=== PATIENT | female | born 1945 | race Hispanic/Latino ===

== ENCOUNTER 2017-12-13 21:21 | Emergency (ER) | payer MEDICARE ==
[~2017-12-13] VITALS: Ht 157.5 cm; Wt 78.1 kg
[2017-12-13] MEDS ORDERED: MORPHINE SULFATE 4 MG/ML SYR IV ONE (21:45)
[2017-12-13] MEDS ORDERED: PROMETHAZINE HCL (IM) 25 MG/ML VIAL IM ONE (21:45)
[2017-12-13] MEDS ORDERED: SODIUM CHLORIDE 0.9% 1000ML 1,000 ML ONE (21:45)
[2017-12-13] MEDS ORDERED: HYDRALAZINE HCL 20 MG/ML VIAL IV ONE (22:30)
[2017-12-13] MEDS ORDERED: METOPROLOL TARTRATE INJ 1 MG/ML VIAL IV ONE (23:00)
[2017-12-14] MEDS ORDERED: ACETAMINOPHEN 325 MG TAB PO ONE (00:30)
[2017-12-14] MEDS ORDERED: ZOFRAN ODT4 MG SL (01:18)
[2017-12-14 02:17] VITALS: BP 111/94
== END 2017-12-14 01:30 | disposition home or self-care (01) ==
LOC: FSED 21:21
DX: R51 Headache (principal); R11.2 Nausea with vomiting, unspecified; R10.13 Epigastric pain; T88.7XXA Unspecified adverse effect of drug or medicament, initial encounter; I10 Essential (primary) hypertension
CPT/HCPCS: 70450; 71020; 74177; 80048; 82553; 84484; 85025; 93005; 96360; 96374; 96375; 99284; J0360; J2270; J2550; J7030; 71046

== ENCOUNTER 2019-01-11 17:34 | Emergency (ER) | payer MEDICARE ==
[~2019-01-11] VITALS: Ht 162.6 cm; Wt 74.4 kg
[~2019-01-11 17:34] MED LIST: ZOFRAN ODT4 MG SL
--- NOTE | 2019-01-11 19:41 | NUR ---
REPORT TO RYAN BERMAN
== END 2019-01-11 21:50 | disposition home or self-care (01) ==
LOC: FSED 17:34
DX: R42 Dizziness and giddiness (principal)
CPT/HCPCS: 93005; 99283

== ENCOUNTER 2020-06-15 14:43 | Emergency (ER) | payer MEDICARE ==
[~2020-06-15] VITALS: Ht 157.5 cm; Wt 74.1 kg
--- OUTSIDE RECORDS SUMMARY | 2020-06-15 15:26 | XMS REPORT | Continuity of Care Document ---
Author Author [facility] t Organization [facility] Address [address] [place] [address] Phone Unavailable Care Team Providers Care Co Op Name Role Phone LEANDRO DURAN, Tamiko CASTILLO PCP Roberto MANUEL Unavailable Payers Payer Name Policy Type Policy Number Effective Date Expiration Date Maricarmen lennon [facility] [id number] 2018 00:00:00 [facility] Medicare A & B [id number] [facility] Medicare Advantage [id number] [facility] Problems This patient has no known problems. Allergies, Adverse Reactions, Alerts This patient has no known allergies or adverse reactions. Medications Ordered Medication Name Filled Medication Name Start Date Stop Da te Current Medication? Ordering Clinician Indication Dosage Frequency Signature (SIG) Comments Components Source Ondansetron (Zofran Odt) 4 Mg Tab.rapdis Ondansetron ( Zofran Odt) 4 Mg Tab.rapdis 2017-12-14 00:00:00 Yes Scooby Coburn Md 4 Every 6 Hours as needed for Nausea [facility] Procedures This patient has no known procedures. Encounters Start Date/Time End Date/Time [facility] ID Source 2019-11-25 22:14:00 2019-11-25 23:25:00 Departed Emergency Room 1 AZALEA MANUEL [facility] [id number] [facility] 2019-01-11 17:34:00 2019-01-11 21:50:00 Departed Emergency Room [facility] [id number] [facility] 2017-12-13 21:21:00 2017-12-14 01:30:00 Departed Emergency Room [facility] [id number] [facility] Results Test Description Test Time Test Comments Results Result Comments Source CT BRAIN WO-HOPD 2019-11-25 22:58:00 [facility] [address] [address] Patient Name: REESE ESCOBEDO MR #: [id number] : 1945 Age/Sex: 74/F Req #: [id number] Adm Physician: Ordered by: AZALEA MANUEL MD Report #: [id number] Location: [facility] Room/Bed: Procedure: [id number] HOPD/CT BRAIN WO-HOPD Exam Date: 11/25/19 Exam Time: 2250 REPORT STATUS: Signed Examination: CT head without contrast Clinical Indication: Headaches; high blood pressure. Technique: Transaxial noncontrast images from the skull base through the vertex were obtained. Sagittal and coronal reformatted images were done. Dose modulation, iterative reconstruction, and/or weight based adjustment of the mA/kV was utilized to reduce the radiation dose to as low as reasonably achievable. Comparison: None. Findings: Scalp: No abnormalities. Bones: Intact. No fractures. No blastic or lytic lesions. Brain sulci: Appropriate for patient's age. Ventricles: Normal in size and configuration. No hydrocephalus. . Extra-axial space: No abnormalities. Parenchyma: There are patchy areas of low-attenuation within subcortical and periventricular white matter, nonspecific, but could represent microvascular ischemic disease. No masses, hemorrhage, or acute or chronic cortical based vascular insults. Suprasellar region: No abnormalities. Craniocervical junction: The foramen magnum is patent. No Chiari one malformation. Impression: 1. No acute intracranial finding. 2. Mild chronic microvascular ischemic change. Signed by: Dr. Geraldine Gregory M.D. on 11/25/2019 11:00 PM Dictated By: GERALDINE ROTHMAN MD 99 Transcribed By: LUZ MARIA on 11/25/192299 COPY TO: AZALEA MANUEL MD
[2020-06-15] MEDS ORDERED: LOSARTAN POTAS100 MG PO (15:29)
[2020-06-15] MEDS ORDERED: AMLODIPINE BESYL5 MG PO (15:29)
[2020-06-15] MEDS ORDERED: ATORVASTATIN CA20 MG PO (15:29)
--- NOTE | 2020-06-15 15:55 | Diagnostic Imaging Report ---
EXAMINATION: CXR 1 [facility] INDICATION: Palpitations, hypertension COMPARISON: None FINDINGS: LINES/TUBES:EKG leads overlie the chest. LUNGS:The lungs are well-inflated. No focal consolidation or pulmonary edema. PLEURA:No pleural effusion or pneumothorax. MEDIASTINUM:The cardiomediastinal silhouette appears normal in size and shape. Atherosclerotic calcifications of the thoracic aorta. BONES/SOFT TISSUES:No acute osseous injury. ABDOMEN:No free air under the diaphragm. IMPRESSION: No focal pneumonia or pulmonary edema. Signed by: Santa Parson MD on 06/15/2020 3:52 PM
[2020-06-15 16:15] VITALS: BP 152/72
--- NOTE | 2020-06-15 16:25 | Emergency Department Note ---
History of Present Illnes History of Present Illness Chief Complaint: Chest Pain History of Present Illness This is a 74 year old female Chief Complaint Comment Reports that for over 3 weeks when she is walking around she has a rapid heart rate and palpitations but when she stands still her heart rate goes down and the palpitations stop. She seen her iron caster 3 weeks ago and he diagnosed her with a heart murmur and told her it was nothing to worry about. Pt seen her PCP yesterday and she took her off a medication that she was taking for her headaches. . Historian: Patient Arrival Mode: Car Onset (how long ago): day(s) (1) Location: palpitation Quality: no pain Radiation: Denies non-radiation, Denies back, Denies neck, Denies extremity, Denies abdomen, Denies periumbilical, Denies flank, Denies proximal, Denies distal, Denies other Severity: mild Onset quality: gradual Duration (how long): day(s) (1) Timing of current episode: intermittent Progression: improving Chronicity: recurrent Context: Denies recent illness, Denies recent surgery, Denies recent immobilization, Denies recent travel, Denies trauma/injury, Denies new medications, Denies hx of DVT/PE, Denies non-compliance w/ medications, Denies other Relieving factors: none Exacerbating factors: none Associated symptoms: Reports denies other symptoms Treatments prior to arrival: none Past Medical/Family History Physician Review I have reviewed the patient's past medical and family history. Any updates have been documented here. Past Medical History Recent Fever: No Clinical Suspicion of Infectio: No New/Unexplained Change in Ment: No Past Medical History: Hypertension, Hyperlipedemia Other Medical History: gout MIGRAINES Past Surgical History: Cholecysctectomy, Hysterectomy Social History Smoking Cessation: Never Smoker Counseling Performed: No Alcohol Use: None Any Illegal Drug Use: No Other Last Tetanus: UNKNOWN Any Pre-Existing Lines (PICC,: No Review of Systems Review of Systems Constitutional: Reports no symptoms EENTM: Reports no symptoms Cardiovascular: Reports as per HPI Respiratory: Reports no symptoms Gastrointestinal: Reports no symptoms Genitourinary: Reports no symptoms Musculoskeletal: Reports no symptoms Integumentary: Reports no symptoms Neurological: Reports no symptoms Psychological: Reports no symptoms Endocrine: Reports no symptoms Hematological/Lymphatic: Reports no symptoms Physical Exam Related Data Allergies: Coded Allergies: No Known Allergies (Unverified , 12/13/17) Triage Vital Signs Vital Signs Date Time Temp Pulse Resp B/P (MAP) Pulse Ox O2 Delivery O2 Flow Rate FiO2 06/15/20 14:47 98.6 73 20 171/82 99 Room Air Vital signs reviewed: Yes Physical Exam CONSTITUTIONAL Constitutional: Present well-developed, Present well-nourished HENT HENT: Present normocephalic, Present atraumatic, Present oropharynx clear/moist, Present nose normal HENT L/R: Present left ext ear normal, Present right ext ear normal EYES Eyes: Reports PERRL, Reports conjunctivae normal NECK Neck: Present ROM normal PULMONARY Pulmonary: Present effort normal, Present breath sounds normal CARDIOVASCULAR Cardiovascular: Present regular rhythm, Present heart sounds normal, Present capillary refill normal, Present normal rate GASTROINTESTINAL Abdominal: Present soft, Present nontender, Present bowel sounds normal GENITOURINARY Genitourinary: Present exam deferred SKIN Skin: Present warm, Present dry MUSCULOSKELETAL Musculoskeletal: Present ROM normal NEUROLOGICAL Neurological: Present alert, Present oriented x 3, Present no gross motor or sensory deficits PSYCHOLOGICAL Psychological: Present mood/affect normal, Present judgement normal Results Laboratory Lab results reviewed: Yes Imaging Imaging results reviewed: Yes Procedures 12 Lead ECG Interpretation ECG Interpretation : ECG: ECG 1 Respiratory Care Technician: Interpreted by ED physician Date: Jun 15, 2020 Time: 14:51 Rhythm: sinus rhythm Rate: normal BPM: 77 Conduction: complete RBBB ST segments normal: Yes T waves normal: Yes Clinical Impression: abnormal ECG Assessment & Plan Medical Decision Making MDM tachycardia anxiety Reassessment Reassessment time: 16:24 Reassessment resolved Assessment & Plan Final Impression: (1) Uncontrolled hypertension (2) Palpitation Depart Disposition: HOME, SELF-CARE Last Vital Signs Date Time Temp Pulse Resp B/P (MAP) Pulse Ox O2 Delivery O2 Flow Rate FiO2 06/15/20 16:15 66 18 100 06/15/20 15:39 181/77 Room Air 06/15/20 14:47 98.6 Home Meds Reported Medications Amlodipine Besylate (AMLODIPINE BESYLATE) 5 Mg Tablet, 5 MG PO DAILY, #30 TAB 06/15/20 Atorvastatin Calcium (ATORVASTATIN CALCIUM) 20 Mg Tablet, 20 MG PO HS, #30 TAB 06/15/20 Losartan Potassium (LOSARTAN POTASSIUM) 100 Mg Tablet, 100 MG PO DAILY, TAB 06/15/20 Discontinued Scripts Ondansetron (ZOFRAN ODT) 4 Mg Tab.rapdis, 4 MG SL Q6H PRN for Nausea, #5 0 Refills Prov:ALEA RENNER MD 12/14/17 JUJU LAL MD Jun 15, 2020 16:25
== END 2020-06-15 16:41 | disposition home or self-care (01) ==
LOC: FSED 14:43
DX: R00.2 Palpitations (principal); I10 Essential (primary) hypertension; R94.31 Abnormal electrocardiogram [ECG] [EKG]; E78.5 Hyperlipidemia, unspecified; M10.9 Gout, unspecified
CPT/HCPCS: 71045; 80053; 84484; 85025; 93005; 99284

== ENCOUNTER 2020-06-21 04:20 | Observation (INO) | payer MEDICARE ==
[2020-06-21] VITALS (7 sets, daily range): BP systolic 125–156; BP diastolic 65–82
[~2020-06-21] VITALS: Ht 162.6 cm; Wt 73.1 kg
[~2020-06-21 04:20] MED LIST changes: +AMLODIPINE BESYL5 MG PO; +ATORVASTATIN CA20 MG PO; +LOSARTAN POTAS100 MG PO
--- NOTE | 2020-06-21 06:12 | NUR ---
PER MD-HOLD ASA UNTIL RESULTS FROM CT ARE BACK
[2020-06-21] MEDS ORDERED: ASPIRIN 325 MG TAB PO ONE (06:15)
--- NOTE | 2020-06-21 06:17 | Diagnostic Imaging Report ---
Exam: Head CT without contrast History: Facial numbness Comparison studies: Head CT 11/25/2019 Technique: Axial images were obtained from the skull base to the vertex. Coronal and sagittal images reconstructed from the axial data. Dose modulation, iterative reconstruction, and/or weight based adjustment of the mA/kV was utilized to reduce the radiation dose to as low as reasonably achievable. Radiation dose: Total DLP: 969.14 mGy*cm. Estimated effective dose: DLP x 0.015 Intravenous contrast: None Findings: Scalp: No abnormalities. Bones: No fractures, blastic or lytic lesions. Ventricles: Normal in size and configuration. No hydrocephalus. Extra-axial spaces: No masses, no fluid collection. Parenchyma: No abnormal densities. No mass, acute hemorrhage or acute or chronic cortical insults. Unchanged mild nonspecific cerebellar volume loss, most pronounced within the superior cerebellar vermis. Similar findings can be seen in patients with chronic EtOH use in the appropriate clinical setting. Cerebral brain volume is appropriate for patient's age. Sellar/suprasellar region. Unchanged partially CSF filled sella. Craniocervical junction: Patent foramen magnum. No Chiari one malformation. 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 IMPRESSION: 1. No acute intracranial abnormalities. 2. Nonspecific mild cerebellar volume loss. 3. No changes from the prior head CT of 11/25/2019. Signed by: Dr. Garry Madrid M.D. on 06/21/2020 6:14 AM
[2020-06-21] MEDS ORDERED: SODIUM CHLORIDE FLUSH 10 ML SYR INJ PRN (06:45)
[2020-06-21] MEDS ORDERED: ONDANSETRON HCL INJ 2MG/ML 2ML 2 MG/ML VIAL IV PRN (06:45)
--- NOTE | 2020-06-21 06:46 | Emergency Department Note ---
History of Present Illnes History of Present Illness Chief Complaint: General Medicine Complaints History of Present Illness This is a 74 year old female presents with left-sided facial numbness with onset approximately 1 hour prior to arrival and resolved at arrival. The patient is in the process of being worked up for intermittent palpitations since January. She was seen here on June 15 for a chief complaint of palpitations and had an EKG that showed normal sinus rhythm, a negative troponin, and a negative x-ray. She followed up with a baseboard heating installer on June 17 who started her on Metroprolol and has scheduled her for an echo and a stress test. She states that the metoprolol has been helping her symptoms. She had a episode of palpitations about an hour prior to arrival while returning to her bedroom from the bathroom, shortly after that she felt shaky and had left facial weakness and numbness. She describes an inability to move her tongue, and states when she pinched her lip on the left side she could not feel it. Her facial symptoms were only on the left side. She denies any extremity numbness, weakness, or tingling. No blurry vision, or black spots. No hearing problems. She called her daughter during this episode. Her daughter said that the patient was tearful, however had no slurred speech. Both the patient and the daughter states that she had no difficulty finding her words. She denies any trauma. Denies any chest pain. She denies any shortness of breath, however states that she has problems "getting enough air". No N/V or diaphoresis. Historian: Patient, Family Member Arrival Mode: Car History limited by: language barrier Strategic Marketing Associate Required: Yes Onset (how long ago): hour(s) (1) Location: left face Quality: numbness, weakness Onset quality: sudden Duration (how long): hour(s) (1) Progression: resolved Chronicity: new Context: Reports recent illness (COVID in February, being worked up for palpatations); Denies trauma/injury Relieving factors: none Exacerbating factors: none Associated symptoms: Denies confusion, Denies chest pain, Denies cough, Denies diaphoresis, Denies fever/chills, Denies headaches, Denies loss of appetite, Denies malaise, Denies nausea/vomiting, Denies rash Treatments prior to arrival: none Past Medical/Family History Physician Review I have reviewed the patient's past medical and family history. Any updates have been documented here. Past Medical History Recent Fever: No Clinical Suspicion of Infectio: No New/Unexplained Change in Ment: No Past Medical History: Hypertension, Hyperlipedemia Other Medical History: gout MIGRAINES PALPATATIONS Past Surgical History: Cholecysctectomy, Hysterectomy Social History Smoking Cessation: Never Smoker Alcohol Use: None Any Illegal Drug Use: No Physically hurt or threatened: No Other Last Tetanus: UNKNOWN Any Pre-Existing Lines (PICC,: No Review of Systems Review of Systems Constitutional: Reports no symptoms; Denies chills, Denies fever, Denies malaise EENTM: Reports other (throat itching); Denies eye pain, Denies blurred vision, Denies double vision Cardiovascular: Reports as per HPI, Reports palpitations; Denies chest pain, Denies edema, Denies syncope Respiratory: Reports no symptoms; Denies chest congestion, Denies cough, Denies dyspnea Gastrointestinal: Reports no symptoms Genitourinary: Reports no symptoms Musculoskeletal: Denies back pain, Denies muscle pain Integumentary: Denies rash Neurological: Reports as per HPI Psychological: Reports anxiety Endocrine: Denies increased thirst, Denies increased urination Hematological/Lymphatic: Denies anemia, Denies blood clots, Denies easy bleeding, Denies easy bruising Physical Exam Related Data Allergies: Coded Allergies: No Known Allergies (Unverified , 12/13/17) Triage Vital Signs Vital Signs Date Time Temp Pulse Resp B/P (MAP) Pulse Ox O2 Delivery O2 Flow Rate FiO2 06/21/20 04:29 98.4 70 18 159/77 99 Room Air Physical Exam CONSTITUTIONAL Constitutional: Present well-developed, Present well-nourished HENT HENT: Present normocephalic, Present atraumatic, Present mucosae dry, Present pharynx abnormal EYES NECK Neck: Present ROM normal PULMONARY Pulmonary: Present effort normal, Present breath sounds normal; Absent respiratory distress, Absent rales, Absent rhonchi CARDIOVASCULAR Cardiovascular: Present regular rhythm, Present heart sounds normal; Absent weak pulses GASTROINTESTINAL Abdominal: Present soft, Present nontender GENITOURINARY SKIN Skin: Present warm, Present dry MUSCULOSKELETAL NEUROLOGICAL Neurological: Present alert, Present oriented x 3 PSYCHOLOGICAL Psychological: Present mood/affect normal Results Laboratory Laboratory comments WBC 5.0, HGB 13.9, HCT 41.4, PLT 170, CMP WNL, Troponin negative Imaging Imaging Comments Exam: Head CT without contrast History: Facial numbness Comparison studies: Head CT 11/25/2019 Technique: Axial images were obtained from the skull base to the vertex. Coronal and sagittal images reconstructed from the axial data. Dose modulation, iterative reconstruction, and/or weight based adjustment of the mA/kV was utilized to reduce the radiation dose to as low as reasonably achievable. Radiation dose: Total DLP: 969.14 mGy*cm. Estimated effective dose: DLP x 0.015 Intravenous contrast: None Findings: Scalp: No abnormalities. Bones: No fractures, blastic or lytic lesions. Ventricles: Normal in size and configuration. No hydrocephalus. Extra-axial spaces: No masses, no fluid collection. Parenchyma: No abnormal densities. No mass, acute hemorrhage or acute or chronic cortical insults. Unchanged mild nonspecific cerebellar volume loss, most pronounced within the superior cerebellar vermis. Similar findings can be seen in patients with chronic EtOH use in the appropriate clinical setting. Cerebral brain volume is appropriate for patient's age. Sellar/suprasellar region. Unchanged partially CSF filled sella. Craniocervical junction: Patent foramen magnum. No Chiari one malformation. 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 IMPRESSION: 1. No acute intracranial abnormalities. 2. Nonspecific mild cerebellar volume loss. 3. No changes from the prior head CT of 11/25/2019. Signed by: Dr. Garry Madrid M.D. on 06/21/2020 6:14 AM Procedures 12 Lead ECG Interpretation ECG Interpretation : ECG: ECG 1 Strategic Marketing Associate: Interpreted by ED physician Date: Jun 21, 2020 Time: 04:29 Prior ECG tracings: reviewed Rhythm: sinus rhythm Rate: normal BPM: 69 QRS axis: normal Conduction: incomplete RBBB Clinical Impression: abnormal ECG Assessment & Plan Medical Decision Making [facility] Reviewed Chart from 06/15/2020. WBC 6.3, CMP WNL, neg troponin, EKG NSR with 77bmp and rt bundle branch block. Facial symptom onset after palpations: differential includes, but not limited to hyperventilation syndrome and TIA. Concern for TIA due to the fact that symptoms were only on one side and appear to include weakness. Also concern for fact palpitations proceeded facial numbness/weakness as possible episode of afib as cause of TIA. Spoke with Montrell: admit to Dr. Luciano. Reassessment Reassessment time: 06:44 Reassessment asymptomatic Assessment & Plan Final Impression: (1) TIA (transient ischemic attack) (2) Heart palpitations Depart Disposition: DIS/[facility] Last Vital Signs Date Time Temp Pulse Resp B/P (MAP) Pulse Ox O2 Delivery O2 Flow Rate FiO2 06/21/20 04:29 98.4 70 18 159/77 99 Room Air Home Meds Reported Medications Amlodipine Besylate (AMLODIPINE BESYLATE) 5 Mg Tablet, 5 MG PO DAILY, #30 TAB 06/15/20 Atorvastatin Calcium (ATORVASTATIN CALCIUM) 20 Mg Tablet, 20 MG PO HS, #30 TAB 06/15/20 Losartan Potassium (LOSARTAN POTASSIUM) 100 Mg Tablet, 100 MG PO DAILY, TAB 06/15/20 Discontinued Scripts Ondansetron (ZOFRAN ODT) 4 Mg Tab.rapdis, 4 MG SL Q6H PRN for Nausea, #5 0 Refills Prov:ALEA RENNER MD 12/14/17 MOR PHAM MD Jun 21, 2020 05:39
--- OUTSIDE RECORDS SUMMARY | 2020-06-21 07:04 | XMS REPORT | Continuity of Care Document ---
Author Author [facility] t Organization [facility] Address [address] [place] [address] Phone Unavailable Care Team Providers Care Manager Long Term Care Name Role Phone LEANDRO DURAN, MD Tamiko CASTILLO PCP Serenity PHAM Attphycliff Unavailable JUJU LAL Attphycliff Unavailable Roberto MANUEL Unavailable Payers Payer Name Policy Type Policy Number Effective Date Expiration Date Cliff lennon [employer] [id number] 2020 00:00:00 [facility] [id number] 2018 00:00:00 [facility] Medicare A & B [id number] [facility] Medicare Advantage [id number] [facility] Problems Condition Name Condition Details Condition Category Status Onset Date Resolution Date Last Treatment Date Treating Clinician Comments Source Palpitations Problem Active [facility] Uncontrolled hypertension Problem Active [facility] Allergies, Adverse Reactions, Alerts This patient has no known allergies or adverse reactions. Social History Social Habit Start Date Stop Date Quantity Comments Source Sex Assigned At 1945 00:00:00 1945 00:[birth year]:00 Female [facility] Medications Ordered Medication Name Filled Medication Name Start Date Stop Da te Current Medication? Ordering Clinician Indication Dosage Frequency Signature (SIG) Comments Components Source Ondansetron (Zofran Odt) 4 Mg TAB.RAPDIS Ondansetron ( Zofran Odt) 4 Mg TAB.RAPDIS 2017-12-14 00:18:00 2020-06-15 00:00:00 No 4 Every 6 Hours as needed for Nausea [facility] Amlodipine Besylate Amlodipine Besylate Yes 5 Daily [facility] Atorvastatin Calcium Atorvastatin Calcium Yes 20 Bedtime [facility] Losartan Potassium Losartan Potassium Yes 100 Da avery [facility] Vital Signs Vital Name Observation Time Observation Value Comments Source Weight 2020-06-15 14:47:00 163.31 [lb_av] [facility] BMI (Body Mass Index) 2020-06-15 14:47:00 29.9 kg/m2 [facility] Procedures Procedure Date / Time Performed Performing Clinician Sour e EMERGENCY DEPT VISIT 2019-11-25 00:00:00 [facility] Plan of Care Planned Activity Planned Date Details Comments Source Instructions Heart Palpitations [facility] Encounters Start Date/Time End Date/Time [facility] ID Source 2020-06-15 14:43:00 2020-06-15 16:41:00 Departed Emergency Room 1 JUJU LAL [facility] [id number] [facility] 2019-11-25 21:14:00 2019-11-25 22:25:00 Departed Emergency Room 1 AZALEA MANUEL [facility] [id number] [facility] 2019-01-11 17:34:00 2019-01-11 21:50:00 Departed Emergency Room [facility] [id number] [facility] 2017-12-13 21:21:00 2017-12-14 01:30:00 Departed Emergency Room [facility] [id number] [facility] Results Test Description Test Time Test Comments Results Result Comments Source CT BRAIN WO-HOPD 2020-06-21 06:06:00 [facility] [address] [address] Patient Name: REESE ESCOBEDO MR #: [id number] : 1945 Age/Sex: 74/F Re #: [id number] [facility] Physician: Ordered by: MOR PHAM MD Report #: [id number] Location: [facility] Room/Bed: Procedure: [id number] HOPD/CT BRAIN WO-HOPD Exam Date: 06/21/20 Exam Time: 0545 REPORT STATUS: Signed Exam: Head CT without contrast History: Facial numbness Comparison studies: Head CT 11/25/2019 Technique: Axial images were obtained from the skull base to the vertex. Coronal and sagittal images reconstructed from the axial data. Dose modulation, iterative reconstruction, and/or weight based adjustment of the mA/kV was utilized to reduce the radiation dose to as low as reasonably achievable. Radiation dose: Total DLP: 969.14 mGy*cm. Estimated effective dose: DLP x 0.015 Intravenous contrast: None Findings: Scalp: No abnormalities. Bones: No fractures, blastic or lytic lesions. Ventricles: Normal in size and configuration. No hydrocephalus. Extra-axial spaces: No masses, no fluid collection. Parenchyma: No abnormal densities. No mass, acute hemorrhage or acute or chronic cortical insults. Unchanged mild nonspecific cerebellar volume loss, most pronounced within the superior cerebellar vermis. Similar findings can be seen in patients with chronic EtOH use in the appropriate clinical setting. Cerebral brain volume is appropriate for patient's age. Sellar/suprasellar region. Unchanged partially CSF filled sella. Craniocervical junction: Patent foramen magnum. No Chiari one malformation. 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 IMPRESSION: 1. No acute intracranial abnormalities. 2. Nonspecific mild cerebellar volume loss. 3. No changes from the prior head CT of 11/25/2019. Signed by: Dr. Go Madrid M.D. on 06/21/2020 6:14 AM Dictated By: GO MADRID MD 3 Transcribed By: LUZ MARIA on 06/21/20613 COPY TO: MOR PHAM MD CXR 1 [facility] 2020-06-15 15:51:[address] [address] Patient Name: REESE ESCOBEDO MR #: [id number] : 1945 Age/Sex: 74/F Req #: [id number] Adm Physician: Ordered by: JUJU LAL MD Report #: [id number] Location: [facility] Room/Bed: Procedure: [id number] HOPD/CXR 1 [facility] Exam Date: 06/15/20 Exam Time: 1523 REPORT STATUS: Signed EXAMINATION: CXR 1 [facility] INDICATION: Palpitations, hypertension COMPARISON: None FINDINGS: LINES/TUBES:EKG leads overlie the chest. LUNGS:The lungs are well-inflated. No focal consolidation or pulmonary edema. PLEURA:No p leural effusion or pneumothorax. MEDIASTINUM:The cardiomediastinal silhouette appears normal in size and shape. Atherosclerotic calcifications of the thoracic aorta. BONES/SOFT TISSUES:No acute osseous injury. ABDOMEN:No free air under the diaphragm. IMPRESSION: No focal pneumonia or pulmonary edema. Signed by: Sabina Cueva MD on 06/15/2020 3:52 PM Dictated By: SABINA CUEVA MD 51 Transcribed By: LUZ MARIA on 06/15/201551 COPY TO: JUJU LAL MD CT BRAIN -[facility] 2019-11-25 22:58:00 [address] [address] [address] [address] Patient Name: REESE ESCOBEDO MR #: [id number] : 1945 Age/Sex: 74/F Req #: [id number] Adm Physician: Ordered by: AZALEA MANUEL MD Report #: [id number] Location: [facility] Room/Bed: Procedure: [id number] HOPD/CT BRAIN WO-HOPD Exam Date: 11/25/19 Exam [...] chronic microvascular ischemic change. Signed by: Dr. Zaida Gregory M.D. on 11/25/2019 11:00 PM Dictated By: ZAIDA ROTHMAN MD 99 Transcribed By: LUZ MARIA on 11/25/192299 COPY TO: AZALEA MANUEL MD
--- OUTSIDE RECORDS SUMMARY | 2020-06-21 07:11 | XMS REPORT | Continuity of Care Document ---
Author Author [facility] t Organization [facility] Address [address] [place] [address] Phone Unavailable Care Team Providers Care Edger Machine Operator Name Role Phone LEANDRO DURAN, MD Tamiko CASTILLO PCP Serenity PHAM Attphycliff Unavailable JUJU LAL Attphycliff Unavailable Roberto MANUEL Unavailable Payers Payer Name Policy Type Policy Number Effective Date Expiration Date Cliff lennon [employer] [id number] 2020 00:00:00 [facility] [id number] 2018 00:00:00 [facility] Medicare A & B [id number] [facility] Medicare Advantage [id number] [facility] Problems Condition Name Condition Details Condition Category Status Onset Date Resolution Date Last Treatment Date Treating Clinician Comments Source Palpitations Problem Active [facility] Uncontrolled hypertension Problem Active [facility] Allergies, Adverse Reactions, Alerts This patient has no known allergies or adverse reactions. Social History Social Habit Start Date Stop Date Quantity Comments Source Sex Assigned At 1945 00:00:00 1945 00[birth year]:00 Female [facility] Medications Ordered Medication Name Filled Medication Name Start Date Stop Da te Current Medication? Ordering Clinician Indication Dosage Frequency Signature (SIG) Comments Components Source Ondansetron (Zofran Odt) 4 Mg TAB.RAPDIS Ondansetron ( Zofran Odt) 4 Mg TAB.RAPDIS 2017-12-14 00:18:00 2020-06-15 00:00:00 No 4 Every 6 Hours as needed for Nausea [facility] Amlodipine Besylate Amlodipine Besylate Yes 5 Daily [facility] Atorvastatin Calcium Atorvastatin Calcium Yes 20 Bedtime [facility] Losartan Potassium Losartan Potassium Yes 100 Da avery [facility] Vital Signs Vital Name Observation Time Observation Value Comments Source Weight 2020-06-15 14:47:00 163.31 [lb_av] [facility] BMI (Body Mass Index) 2020-06-15 14:47:00 29.9 kg/m2 [facility] Procedures Procedure Date / Time Performed Performing Clinician Sour e EMERGENCY DEPT VISIT 2019-11-25 00:00:00 [facility] Plan of Care Planned Activity Planned Date Details Comments Source Instructions Heart Palpitations [facility] Encounters Start Date/Time End Date/Time [facility] ID Source 2020-06-15 14:43:00 2020-06-15 16:41:00 Departed Emergency Room 1 JUJU LAL [facility] [id number] [facility] 2019-11-25 21:14:00 2019-11-25 22:25:00 Departed Emergency Room 1 AZALEA MANUEL [facility] [id number] [facility] 2019-01-11 17:34:00 2019-01-11 21:50:00 Departed Emergency Room [facility] [id number] [facility] 2017-12-13 21:21:00 2017-12-14 01:30:00 Departed Emergency Room [facility] [id number] [facility] Results Test Description Test Time Test Comments Results Result Comments Source CT BRAIN WO-HOPD 2020-06-21 06:06:00 [facility] [address] [address] Patient Name: REESE ESCOBEDO MR #: [id number] : 1945 Age/Sex: 74/F Re #: [id number] [facility] Physician: Ordered by: MOR PHAM MD Report #: [id number] Location: [facility] Room/Bed: Procedure: [id number] HOPD/CT BRAIN WO-HOPD Exam Date: 06/21/20 Exam [...] COPY TO: MOR PHAM MD CXR 1 [facility] 2020-06-15 15:51:[address] [address] Patient Name: REESE ESCOBEDO MR #: [id number] : 1945 Age/Sex: 74/F Req #: [id number] Adm Physician: Ordered by: JUJU LAL MD Report #: [id number] Location: [facility] Room/Bed: Procedure: [id number] HOPD/CXR 1 [facility] Exam Date: 06/15/20 Exam Time: 1523 REPORT STATUS: Signed EXAMINATION: CXR 1 [facility] INDICATION: Palpitations, hypertension COMPARISON: None FINDINGS: LINES/TUBES:EKG [...] COPY TO: JUJU LAL MD CT BRAIN -[facility] 2019-11-25 22:58:00 [address] [address] [address] [address] Patient Name: REESE ESCOBEDO MR #: [id number] : 1945 Age/Sex: 74/F Req #: [id number] Adm Physician: Ordered by: AZALEA MANUEL MD Report #: [id number] Location: [facility] Room/Bed: Procedure: [id number] HOPD/CT BRAIN WO-HOPD Exam Date: 11/25/19 Exam [...]
--- NOTE | 2020-06-21 07:38 | NUR ---
[facility] NOTIFIED OF TRANSFER TRANSFER ETA 30-45 MINUTES
--- NOTE | 2020-06-21 08:55 | NUR ---
PATIENT RECEIVED FROM [facility] PER JULIANNA. ALERT AND VERBALLY RESPONSIVE, MOSTLY SLOVAK SPEAKING. DENIED PAIN AT THIS TIME. SKIN WARM AND DRY AT THIS TIME, RESPIRATION EVEN AND UNLABORED, ABDOMEN SOFT AND NON DISTENDED. YELLOW SOCKS AND TELEMETRY BOX 18 APPLIED. BED IN LOWER POSITION, CALL LIGHT AT REACH. INSTRUCTED TO CALL FOR ASSISTANCE NEEDED WITH RETURN DEMONSTRATION.
--- NOTE | 2020-06-21 11:17 | NUR ---
PATIENT AMBULATED TO THE RESTROOM AND BACK TO BED. CALL LIGHT AT REACH.
[2020-06-21] MEDS ORDERED: LORAZEPAM INJ 2 MG/ML VIAL IV PRN (13:15)
[2020-06-21] MEDS ORDERED: ACETAMINOPHEN 325 MG TAB PO PRN (13:30)
[2020-06-21] MEDS ORDERED: METOPROLOL TARTRATE INJ 1 MG/ML VIAL IV PRN (13:30)
[2020-06-21] MEDS ORDERED: METOPROLOL SUCC25 MG PO (13:31)
[2020-06-21] MEDS: AMLODIPINE BESYLATE 5 MG TAB PO SCH (14:52)
--- NOTE | 2020-06-21 15:14 | NUR ---
PATIENT NOTED WITH ANXIETY, GEOLOGIST PETROLEUM NOTIFIED. NEW ORDER RECEIVED AND IMPLEMENTED. PATIENT IN BED RESTING QUIETLY AT THIS TIME. CALL LIGHT AT REACH.
[2020-06-21 15:18] LABS: CHOL/HDL RATIO 2.4 (3.0-3.6)
[2020-06-21 15:38] LABS: THYROID STIMULATING HORMONE 1.359 uIU/mL (0.350-4.940)
[2020-06-21] MEDS: FAMOTIDINE 20 MG/2 ML VIAL IV SCH (17:03)
[2020-06-21] MEDS: METOPROLOL TARTRATE 25 MG TAB PO SCH (18:01)
--- NOTE | 2020-06-21 19:06 | NUR ---
BED SIDE SHIFT REPORT GIVEN TO ON COMING NURSE. PATIENT IN BED RESTING WITH CALL LIGHT AT REACH.
[2020-06-21] MEDS ORDERED: ATORVASTATIN 20 MG TAB PO SCH (21:00)
[2020-06-22 04:00] VITALS: BP 148/62
[2020-06-22] MEDS: METOPROLOL TARTRATE 25 MG TAB PO SCH ×4 (05:37→17:19)
[2020-06-22 06:08] LABS: BASOPHILS % 0.6 % (0.0-1.0); EOSINOPHILS % 0.9 % (0.0-6.0); HEMATOCRIT 41.2 % (34.2-44.1); HEMOGLOBIN 13.5 g/dL (12.0-16.0); LYMPHOCYTES % 29.9 % (18.0-39.1); MEAN CORPUSCULAR HGB CONC 32.8 g/dL (31-35); MEAN CORPUSCULAR VOLUME 94.7 fL (81-99); MONOCYTES # (AUTO) 0.3 (0.2-0.8); MONOCYTES % 8.8 % (4.4-11.3); NEUTROPHILS % 59.5 % (38.7-80.0); PLATELET COUNT 160 x10e3/uL (140-360); RED BLOOD COUNT 4.35 x10e6/uL (3.6-5.1); RED CELL DISTRIBUTION WIDTH 13.2 % (11.7-14.4)
[2020-06-22 06:32] LABS: ALANINE AMINOTRANSFERASE 27 IU/L (0-55); ALBUMIN/GLOBULIN RATIO 1.4 (0.8-2.0); ALKALINE PHOSPHATASE 99 IU/L (40-150); ANION GAP 11.7 mmol/L (8-16); BLOOD UREA NITROGEN 8 mg/dL (7-26); BUN/CREATININE RATIO 11 (6-25); CALCIUM 9.3 mg/dL (8.4-10.2); CARBON DIOXIDE 28 mmol/L (22-29); CHLORIDE 105 mmol/L (98-107); CREATININE, SERUM 0.76 mg/dL (0.57-1.11); EST GLOMERULAR FILTRATION RATE > 60 ML/MIN (60-); GLUCOSE 86 mg/dL (74-118); POTASSIUM 3.7 mmol/L (3.5-5.1); SODIUM 141 mmol/L (136-145)
--- NOTE | 2020-06-22 07:21 | NUR ---
PATIENT SITTING UP IN BED WATCHING TV, NO DISTRESS NOTED. DENIED PAIN AT THIS TIME. BED IN LOWER POSITION, CALL LIGHT AT REACH.
[2020-06-22 07:25] VITALS: BP 132/81
[2020-06-22 07:53] VITALS: BP 132/81
[2020-06-22] MEDS ORDERED: ASPIRIN 325 MG TAB PO SCH (09:00)
[2020-06-22] MEDS: FAMOTIDINE 20 MG/2 ML VIAL IV SCH ×2 (09:00→17:15)
[2020-06-22] MEDS: AMLODIPINE BESYLATE 5 MG TAB PO SCH (09:59)
--- NOTE | 2020-06-22 11:15 | NUR ---
PATIENT AMBULATING IN ROOM, NO DISTRESS NOTED. ALL PERSONAL ITEMS AT EASY REACH.
[2020-06-22 11:33] VITALS: BP 161/86
[2020-06-22] MEDS ORDERED: ATIVAN0.5 MG PO (12:37)
--- NOTE | 2020-06-22 15:37 | NUR ---
DR COE IN TO SEE PATIENT, NO NEW ORDER RECEIVED.
[2020-06-22 15:44] VITALS: BP 133/84
--- NOTE | 2020-06-22 18:47 | NUR ---
PATIENT DISCHARGED HOME. DISCHARGE INSTRUCTIONS, PRESCRIPTION, AND FOLLOW UP GIVEN TO PATIENT, SHE VERBALIZED UNDERSTANDING. IV TO RIGHT AC REMOVED WITH TIP INTACT. ALL PERSONAL ITEMS TAKEN WITH PATIENT. LEFT UNIT PER WHEEL CHAIR TO FRONT LOBBY IN STABLE CONDITION.
--- NOTE | 2020-06-22 19:00 | Consultation ---
DATE OF CONSULTATION: Cardiology Consultation REASON FOR CONSULTATION: Palpitations. HISTORY OF PRESENT ILLNESS: This is a 74-year-old woman, who presented with palpitations and left sided facial paresthesias. The neurological deficits resolved one hour prior to arrival. She is currently being evaluated by cardiologists in the medical center for intermittent palpitations. She has presented last week as well with palpitations and no abnormality was found. She has a stress test pending next week. She otherwise denies any chest pain or shortness of breath. PAST MEDICAL HISTORY: As stated above. PAST SURGICAL HISTORY: None recent. PAST FAMILY HISTORY: Noncontributory to current illness. SOCIAL HISTORY: No illicit drug, alcohol, or tobacco use. ALLERGIES: NO KNOWN DRUG ALLERGIES. MEDICATIONS: See medication reconciliation form. PHYSICAL EXAMINATION: VITAL SIGNS: Temperature is 97.7, heart rate 68, respirations 17, blood pressure is 133/84, and oxygen saturation 100% on room air. GENERAL: Well appearing, well built, no apparent distress. Alert and oriented x3. HEAD: Normocephalic and atraumatic. EYES: Extraocular muscles intact. Conjunctivae clear. NECK: No JVD. No bruits. CARDIOVASCULAR: Regular rate and rhythm. LUNGS: Clear to auscultation. ABDOMEN: Soft, nontender, and nondistended. EXTREMITIES: No clubbing, cyanosis, or edema. VASCULAR: 2+ pulses. SKIN: Warm, dry, and intact. NEUROLOGIC: No focal deficits noted. LABORATORY DATA: Reviewed. Telemetry monitoring revealed rare PVCs, normal sinus rhythm. IMPRESSION: 1. Palpitations. 2. Premature ventricular contractions. 3. Hypertension. 4. Hyperlipidemia. 5. Possible transient ischemic attack. RECOMMENDATIONS: The patient has had no significant cardiac arrhythmias. She is scheduled for echo and stress test next week with her primary pad machine offbearer. Continue metoprolol. The patient may be discharged from a cardiovascular standpoint with outpatient followup. DO EDITH Cornoy/MODL /[id number]
--- NOTE | 2020-06-22 20:25 | Discharge Summary ---
ADMISSION DIAGNOSES: Palpitations, left facial numbness, hypertension, hyperlipidemia. DISCHARGE DIAGNOSES: Palpitations, left facial numbness, hypertension, hyperlipidemia, rule out myocardial infarction, rule out cerebrovascular accident. HISTORY: Hypertension, hyperlipidemia, migraines, palpitation. SURGICAL HISTORY: Cholecystectomy and hysterectomy. FAMILY HISTORY: The patient's mother had cancer. SOCIAL HISTORY: Noncontributory. HOSPITAL COURSE: A 74-year-old female admits with complaints of palpitations since January, but it was more frequent yesterday, so she came to the ER. Also yesterday, she had associated left facial numbness at about 3:00 a.m. She denies dysphagia, dizziness, shortness of breath, and weakness. She was recently given metoprolol by her advertising copy writer, which helped temporarily, but appeared to not help on the day of admission. She was supposed to have an echo and stress test on June 29 with her advertising copy writer. On admission, the patient was resumed on her home dose of beta-jessie. Her TSH was checked and normal. She was placed on telemetry. CT of the brain was negative. Carotid Doppler was negative. The patient did not have any stroke-like symptoms on assessment, so MRI of the brain was not done. Her lipid panel was within normal limits and her EKG showed normal sinus rhythm at a rate of 69. Cardiology also saw the patient and cleared her for discharge. She will follow up with her own advertising copy writer for the echo and stress test on 06/29. All the findings were discussed with the patient and her home medicines were continued. She was given a p.r.n. prescription for Ativan. It is pretty apparent that the patient is very, very anxious even as we were discussing how her tests were negative, she continues to interrupt me and talk about her symptoms. According to the research tech, the patient has occasional PVCs, but not very frequently. The patient will follow up with primary care in 1 to 2 weeks and Cardiology as discussed. The patient understands instructions and agrees to plan. Vital signs stable, the patient is afebrile. Dictated by Essie Hope NP MD ROHINI Jama/MODRob /[id number]
== END 2020-06-22 18:45 | disposition home or self-care (01) ==
LOC: FSED 04:50 → ERHOLD 06:39 → MED/SURG3 08:38
PROVIDERS: ADMIT Internal Medicine; ATTEND Internal Medicine
DX: R00.2 Palpitations (principal); R20.0 Anesthesia of skin; I10 Essential (primary) hypertension; E78.5 Hyperlipidemia, unspecified; G43.909 Migraine, unspecified, not intractable, without status migrainosus; Z90.49 Acquired absence of other specified parts of digestive tract; Z80.9 Family history of malignant neoplasm, unspecified; I49.3 Ventricular premature depolarization; Z11.59 Encounter for screening for other viral diseases
CPT/HCPCS: 36415; 70450; 80053; 80061; 84443; 84484; 85025; 93005; 93880; 99284; G0378; J2060; U0002

== ENCOUNTER 2022-07-06 22:54 | Emergency (ER) | payer MEDICARE ==
[~2022-07-06] VITALS: Ht 162.6 cm; Wt 73.0 kg
[~2022-07-06 22:54] MED LIST changes: +ATIVAN0.5 MG PO; +METOPROLOL SUCC25 MG PO
[2022-07-06] MEDS ORDERED: CEPHALEXIN500 MG PO (23:36)
[2022-07-06] MEDS ORDERED: CLONIDINE HCL 0.1 MG TAB PO ONE (23:45)
[2022-07-06] MEDS ORDERED: DEXAMETHASONE 10MG/ML PF INJ IM ONE (23:45)
[2022-07-06] MEDS ORDERED: CLONIDINE HCL 0.1 MG TAB ONE (23:51)
[2022-07-06] MEDS ORDERED: DEXAMETHASONE SOD PHOS INJ 4 MG/ML SDV ONE (23:52)
== END 2022-07-07 00:30 | disposition home or self-care (01) ==
LOC: FSED 23:32
DX: J02.9 Acute pharyngitis, unspecified (principal); I10 Essential (primary) hypertension; E78.5 Hyperlipidemia, unspecified; M10.9 Gout, unspecified
CPT/HCPCS: 99282; J1100

== ENCOUNTER 2024-11-22 17:57 | Emergency (ER) | payer MEDICARE ==
[~2024-11-22] VITALS: Ht 160 cm; Wt 76.4 kg
[~2024-11-22 17:57] MED LIST changes: +CEPHALEXIN500 MG PO; +CORICIDIN HBP1 EACH PO; +CRESTOR10 MG PO; +DIOVAN160 MG PO; +FAMOTIDINE20 MG PO; +METOPROLOL SUCC50 MG PO; +NIFEDIPINE ER30 M1 PO; +NITROFURANTOIN100 MG PO; +ONDANSETRON HCL4 MG PO; +PAXLOVID 300-11 EAC1 PO; +SUMATRIPTAN SUC25 MG PO; +TOPIRAMATE25 MG PO
[2024-11-22 18:07] VITALS: TEMP 97.6
[2024-11-22 18:33] VITALS: PULSE 63; RESP 16; O2SAT 97
[2024-11-22] MEDS ORDERED: MUCINEX600 MG PO (18:55)
[2024-11-22] MEDS ORDERED: ARTHRITIS PAIN100 GM (18:55)
[2024-11-22] MEDS ORDERED: TYLENOL EXTRA500 MG PO (18:55)
[2024-11-22] MEDS ORDERED: OS-CAL 500+D T1 EACH PO (18:55)
[2024-11-22] MEDS ORDERED: FLONASE ALLERG9.9 ML INH (18:55)
[2024-11-22] MEDS ORDERED: LEVOFLOXACIN250 MG PO (18:55)
[2024-11-22] MEDS ORDERED: VITAMIN D250 MCG (18:55)
== END 2024-11-22 18:33 | disposition home or self-care (01) ==
LOC: FSED 18:09
DX: I10 Essential (primary) hypertension (principal); E78.5 Hyperlipidemia, unspecified; M10.9 Gout, unspecified; R94.31 Abnormal electrocardiogram [ECG] [EKG]
CPT/HCPCS: 93005; 99283

== ENCOUNTER 2024-12-26 17:59 | Emergency (ER) | payer MEDICARE ==
[~2024-12-26 17:59] MED LIST changes: +ARTHRITIS PAIN100 GM; +FLONASE ALLERG9.9 ML INH; +LEVOFLOXACIN250 MG PO; +MUCINEX600 MG PO; +OS-CAL 500+D T1 EACH PO; +TYLENOL EXTRA500 MG PO; +VITAMIN D250 MCG
[2024-12-26 18:10] VITALS: TEMP 98; O2SAT 99
[2024-12-26 19:10] VITALS: PULSE 67; RESP 18
[2024-12-26] MEDS ORDERED: BACLOFEN10 MG PO (21:11)
[2024-12-26 21:23] VITALS: BP 145/74; PULSE 68; RESP 18; TEMP 98
== END 2024-12-26 21:23 | disposition home or self-care (01) ==
LOC: FSED 18:13
DX: M54.9 Dorsalgia, unspecified (principal); I10 Essential (primary) hypertension; I25.10 Atherosclerotic heart disease of native coronary artery without angina pectoris; E78.5 Hyperlipidemia, unspecified; K21.9 Gastro-esophageal reflux disease without esophagitis; M10.9 Gout, unspecified; R94.31 Abnormal electrocardiogram [ECG] [EKG]
CPT/HCPCS: 71250; 80053; 81003; 84484; 85025; 93005; 99284

== ENCOUNTER 2025-05-02 18:22 | Emergency (ER) | payer MEDICARE ==
[~2025-05-02] VITALS: Ht 160 cm; Wt 74.6 kg
[~2025-05-02 18:22] MED LIST changes: +BACLOFEN10 MG PO
[2025-05-02] MEDS: SODIUM CHLORIDE 0.9% 1000ML 1,000 ML IV SCH (19:00)
[2025-05-02] MEDS: DEXAMETHASONE SOD PHOS 10 MG/1 ML VIAL IV ONE (20:03)
[2025-05-02] MEDS ORDERED: SODIUM CHLORIDE 0.9% 1000ML 1,000 ML ONE (20:07)
[2025-05-02] MEDS: KETOROLAC TROMETHAMINE 30 MG/ML VIAL IV STA (20:12)
[2025-05-02] MEDS: DEXAMETHASONE SOD PHOS INJ 4 MG/ML SDV IV ONE (20:13)
[2025-05-02] MEDS: SODIUM CHLORIDE 0.9% 1000ML 1,000 ML IV ONE (20:13)
[2025-05-02] MEDS ORDERED: DEXAMETHASONE SOD PHOS INJ 4 MG/ML SDV IV ONE (20:15)
[2025-05-02 21:13] VITALS: PULSE 60; RESP 16; TEMP 97.7
[2025-05-02 21:14] VITALS: BP 147/71; PULSE 60; RESP 16; TEMP 97.7; O2SAT 97
== END 2025-05-02 21:14 | disposition home or self-care (01) ==
LOC: FSED 18:26
DX: R51.9 Headache, unspecified (principal); I10 Essential (primary) hypertension; E78.5 Hyperlipidemia, unspecified; K21.9 Gastro-esophageal reflux disease without esophagitis; M10.9 Gout, unspecified; R94.31 Abnormal electrocardiogram [ECG] [EKG]
CPT/HCPCS: 80048; 84484; 85025; 93005; 99283; J1100 ×2; J1885; J7030